=== PATIENT | female | born 1985 | race Caucasian/White ===

== ENCOUNTER 2018-06-27 11:25 | Emergency (ER) | payer MEDICARE, MEDICAID ==
[~2018-06-27] VITALS: Ht 154.9 cm; Wt 94.0 kg
[~2018-06-27 11:25] MED LIST: BUPR150T3 PO; CEPH500T PO; DIPH50CA38 PO; HYDR50CA5 PO; IBUP-2028 PO; NORG7TAB5 PO
[2018-06-27 15:33] VITALS: BP 120/70
== END 2018-06-27 15:34 | disposition home or self-care (01) ==
LOC: ER 11:25
DX: S83.8X2A Sprain of other specified parts of left knee, initial encounter (principal); F41.9 Anxiety disorder, unspecified; J45.909 Unspecified asthma, uncomplicated; F31.9 Bipolar disorder, unspecified; F43.12 Post-traumatic stress disorder, chronic; X50.1XXA Overexertion from prolonged static or awkward postures, initial encounter; Y93.89 Activity, other specified; Y92.89 Other specified places as the place of occurrence of the external cause; Y99.8 Other external cause status; Z79.899 Other long term (current) drug therapy; Z88.1 Allergy status to other antibiotic agents; Z98.890 Other specified postprocedural states
CPT/HCPCS: 73562; 81025; 99284; L1830